=== PATIENT | female | born 1995 | race African-American/Black ===

== ENCOUNTER 2018-09-09 23:49 | Emergency (ER) | payer SELFPAY ==
[~2018-09-09] VITALS: Ht 157.5 cm; Wt 131.5 kg
--- NOTE | 2018-09-10 00:56 | PHYS DOC ---
Past Medical History Past Medical History: Other Additional Past Medical Histor: PCOS Past Surgical History: No Surgical History Additional Information: 1-2 cigars per day. Alcohol Use: Heavy Drug Use: None Adult General Chief Complaint Chief Complaint: TOOTH ACHE OR PAIN [place] [employer] HPI Patient is a 23 year old female who presents with dental pain. Patient states she has a known cavity in the upper left molar area. It has been there for many months. She has not seen a dentist. Today, she presents to the ER with pain at that site. She did not have any new trauma or did not recently break the tooth. No fever or chills. No difficulty breathing or swallowing. Her pain became severe in the last 2-4 hours. Review of Systems Review of Systems Constitutional: Denies fever Eyes: Denies change in visual acuity HENT: Denies nasal congestion Respiratory: Denies cough or shortness of breath Cardiovascular: No additional information not addressed in HPI Integument: Denies rash Neurologic: Denies headache All other systems were reviewed and found to be within normal limits, except as documented in this note. Current Medications Current Medications Current Medications Medications (Trade) Dose Ordered Sig/Ritika Start Time Stop Time Status Last Admin Dose Admin Amoxicillin (Amoxil) 500 mg 1X ONCE 09/10/18 01:00 09/10/18 01:01 09/10/18 00:48 500 MG Morphine Sulfate (Morphine Sulfate) 10 mg 1X ONCE 09/10/18 01:00 09/10/18 01:01 09/10/18 00:39 10 MG Allergies Allergies Allergies Coded Allergies Type Severity Reaction Last Updated Verified No Known Drug Allergies 09/10/18 No Physical Exam Physical Exam Constitutional: Well developed, well nourished, no acute distress, non-toxic appearance HENT: Normocephalic, atraumatic, bilateral external ears normal, oropharynx moist, no oral exudates, nose normal, no drainable or fluctuant fluid collection is present. There is a dental caries in the area of concern. Eyes: PERRLA, EOMI, conjunctiva normal Neck: Normal range of motion Cardiovascular:Heart rate regular rhythm, no murmur Lungs & Thorax: Bilateral breath sounds clear to auscultation Skin: Warm, dry, no erythema, no rash Extremities: No tenderness Neurologic: Alert and oriented X 3 Psychologic: Affect normal Current Patient Data Vital Signs Vital Signs Date Time Temp Pulse Resp B/P (MAP) Pulse Ox O2 Delivery O2 Flow Rate FiO2 09/10/18 00:40 92 22 160/97 (118) 97 Room Air 09/09/18 23:50 98.9 98.9 EKG EKG [] Radiology/Procedures Radiology/Procedures [] Course & Med Decision Making Course & Med Decision Making Pertinent Labs and Imaging studies reviewed. (See chart for details) Patient evaluated in the ER for pain 2/2 dental caries. No acute abscess seen on exam. In the ER she does appear to be in significant distress 2/2 pain. She was given 10 mg morphine IM. Following this, her pain was more tolerable. She was discharged home with some motrin, percocet, and amoxicillin. She is advised to f/u with a dentist as soon as possible. Return to the ER for new or worsening symptoms. Opiate medication information is provided to the patient. She is not driving home this evening. Calling a family member. [place] Disclaimer Dragon Disclaimer This electronic medical record was generated, in whole or in part, using a voice recognition dictation system. Departure Departure Disposition: 01 HOME, SELF-CARE Condition: GOOD Referrals: NO PCP (PCP) Patient Instructions: Dental Pain, Pain Medicine Instructions, [id number] Scripts Oxycodone/Apap 5-325 (PERCOCET 5-325 MG TABLET) 1 Each Tablet 1-2 EACH PO PRN TID PRN for SEVERE PAIN, #15 TAB pain Prov: LENO HERRERA DO 09/10/18 Amoxicillin (AMOXICILLIN) 500 Mg Tablet 1 TAB PO TID, #30 TAB Prov: LENO HERRERA DO 09/10/18 Ibuprofen (IBUPROFEN) 800 Mg Tablet 800 MG PO PRN TID PRN for PAIN, #30 TAB take with food or milk to avoid upsetting stomach Prov: LENO HERRERA DO 09/10/18 LENO HERRERA DO Sep 10, 2018 00:56
[2018-09-10] MEDS ORDERED: AMOX500T PO (00:58)
[2018-09-10] MEDS ORDERED: IBUP-1060 PO (00:58)
[2018-09-10] MEDS ORDERED: OXYC-323 PO (00:58)
[2018-09-10] MEDS ORDERED: MORPHINE SULFATE 10 MG/ML VIAL. IM ONE (01:00)
[2018-09-10] MEDS ORDERED: AMOXICILLIN 250 MG CAPSULE. PO ONE (01:00)
[2018-09-10 01:09] VITALS: BP 121/75
== END 2018-09-10 01:10 | disposition home or self-care (01) ==
LOC: ER 09-10 00:01
DX: K02.9 Dental caries, unspecified (principal); F17.210 Nicotine dependence, cigarettes, uncomplicated; F10.20 Alcohol dependence, uncomplicated; Y90.9 Presence of alcohol in blood, level not specified
CPT/HCPCS: 96372; 99283; J2270

== ENCOUNTER 2018-11-05 08:23 | Emergency (ER) | payer SELFPAY ==
[~2018-11-05] VITALS: Ht 157.5 cm; Wt 127.0 kg
[~2018-11-05 08:23] MED LIST: AMOX500T PO; IBUP-1060 PO; ONDA4TAB10 SL; OXYC1TAB15 PO
[2018-11-05] MEDS ORDERED: cefTRIAXone IM 250 MG VIAL IM ONE (08:45)
[2018-11-05] MEDS ORDERED: AZITHROMYCIN 250 MG TABLET. PO ONE (08:45)
[2018-11-05 09:13] LABS: BILIRUBIN,URINE NEGATIVE (NEG); CLARITY,URINE CLEAR; COLOR,URINE YELLOW; NITRITE,URINE NEGATIVE (NEG); PH,URINE 5.5; PROTEIN,URINE NEGATIVE (NEG-TRACE); UROBILINOGEN,URINE 0.2 mg/dL (0.2 mg/dL)
[2018-11-05 09:44] LABS: BACTERIA,URINE MODERATE /HPF (0-FEW); RBC,URINE 20-40 /HPF (0-2)
[2018-11-05 10:01] LABS: CREATININE ISTAT 0.8 mg/dL (0.5-1.4); HEMOGLOBIN ISTAT 12.6 g/dL (12-15); ION CA ISTAT 1.04 mmol/L (1.13-1.32); POTASSIUM ISTAT 4.1 mmol/L (3.5-5.0)
[2018-11-05] MEDS ORDERED: NITR100C62 PO (10:38)
--- NOTE | 2018-11-05 10:40 | PHYS DOC ---
Past Medical History Past Medical History: UTI, Other Additional Past Medical Histor: PCOS Past Surgical History: No Surgical History Additional Information: 1/2 cigar daily Alcohol Use: Heavy Drug Use: None Adult General Chief Complaint Chief Complaint: VAGINAL BLEEDING HPI HPI Patient is a 23 year old [f__sex] who presents with [] Review of Systems Review of Systems Constitutional: Denies fever or chills [] Eyes: Denies change in visual acuity, redness, or eye pain [] HENT: Denies nasal congestion or sore throat [] Respiratory: Denies cough or shortness of breath [] Cardiovascular: No additional information not addressed in HPI [] GI: Denies abdominal pain, nausea, vomiting, bloody stools or diarrhea [] : Denies dysuria or hematuria [] Musculoskeletal: Denies back pain or joint pain [] Integument: Denies rash or skin lesions [] Neurologic: Denies headache, focal weakness or sensory changes [] Endocrine: Denies polyuria or polydipsia [] All other systems were reviewed and found to be within normal limits, except as documented in this note. Current Medications Current Medications Current Medications Medications (Trade) Dose Ordered Sig/Ritika Start Time Stop Time Status Last Admin Dose Admin Azithromycin (Zithromax) 1,000 mg 1X ONCE 11/05/18 08:45 11/05/18 08:47 DC 11/05/18 09:27 1,000 MG Ceftriaxone Sodium (Rocephin Im) 250 mg 1X ONCE 11/05/18 08:45 11/05/18 08:47 DC 11/05/18 09:26 250 MG Allergies Allergies Allergies Coded Allergies Type Severity Reaction Last Updated Verified Latex, Natural Rubber Allergy Intermediate 09/16/18 Yes acetaminophen Allergy Intermediate RASH 09/16/18 Yes Physical Exam Physical Exam Constitutional: Well developed, well nourished, no acute distress, non-toxic appearance. [] HENT: Normocephalic, atraumatic, bilateral external ears normal, oropharynx moist, no oral exudates, nose normal. [] Eyes: PERRLA, EOMI, conjunctiva normal, no discharge. [] Neck: Normal range of motion, no tenderness, supple, no stridor. [] Cardiovascular:Heart rate regular rhythm, no murmur [] Lungs & Thorax: Bilateral breath sounds clear to auscultation [] Abdomen: Bowel sounds normal, soft, no tenderness, no masses, no pulsatile masses. [] Skin: Warm, dry, no erythema, no rash. [] Back: No tenderness, no CVA tenderness. [] Extremities: No tenderness, no cyanosis, no clubbing, ROM intact, no edema. [] Neurologic: Alert and oriented X 3, normal motor function, normal sensory function, no focal deficits noted. [] Psychologic: Affect normal, judgement normal, mood normal. [] Current Patient Data Vital Signs Vital Signs Date Time Temp Pulse Resp B/P (MAP) Pulse Ox O2 Delivery O2 Flow Rate FiO2 11/05/18 08:25 98.5 87 16 134/67 (89) 98 Room Air 98.5 Lab Values Laboratory Tests Test 11/05/18 08:44 11/05/18 09:00 11/05/18 09:37 POC Urine HCG, Qualitative Hcg negative (Negative) Urine Collection Type Unknown Urine Color Yellow Urine Clarity Clear Urine pH 5.5 Urine Specific [place] 1.025 Urine Protein Negative mg/dL (NEG-TRACE) Urine Glucose (UA) Negative mg/dL (NEG) Urine Ketones (Stick) Negative mg/dL (NEG) Urine Blood Large (NEG) Urine Nitrite Negative (NEG) Urine Bilirubin Negative (NEG) Urine Urobilinogen Dipstick 0.2 mg/dL (0.2 mg/dL) Urine Leukocyte Esterase Moderate (NEG) Urine RBC 20-40 /HPF (0-2) Urine WBC 11-20 /HPF (0-4) Urine Bacteria Moderate /HPF (0-FEW) POC Hemoglobin 12.6 g/dL (12-15) POC Hematocrit 37 % (36-40) POC Sodium 141 mmol/L (135-145) POC Potassium 4.1 mmol/L (3.5-5.0) POC Chloride 107 mmol/L (98-110) POC Total CO2 24 mmol/L (23-32) Anion Gap 16 mmol/L (6-14) H POC Blood Urea Nitrogen 13 mg/dL (8-26) POC Creatinine 0.8 mg/dL (0.5-1.4) Glucose Level 103 mg/dL (70-99) H POC Ionized Calcium (Sage) 1.04 mmol/L (1.13-1.32) L Laboratory Tests 11/05/18 09:37 Microbiology 11/05/18 Wet Prep - Final, Complete EKG EKG [] Radiology/Procedures Radiology/Procedures [] Course & Med Decision Making Course & Med Decision Making Pertinent Labs and Imaging studies reviewed. (See chart for details) [] Dragon Disclaimer Dragon Disclaimer This electronic medical record was generated, in whole or in part, using a voice recognition dictation system. Departure Departure Impression: Primary Impression: Abnormal vaginal bleeding Additional Impressions: Urinary tract infection Exposure to sexually transmitted disease (STD) Disposition: HOME, SELF-CARE Condition: STABLE Referrals: NO PCP (PCP) Patient Instructions: Sexually Transmitted Disease, Urinary Tract Infection Additional Instructions: Take the medication as prescribed. Follow-up with gynecology for further management of your abnormal menstrual bleeding. Follow up with your primary care provider in one week for recheck of your urine. Scripts Nitrofurantoin Monohyd/M-Cryst (MACROBID 100 MG CAPSULE) 100 Mg Capsule 1 CAP PO BID for UTI, #14 CAP Prov: GLORIA MILLARD APRN 11/05/18 Problem Qualifiers GLORIA MILLARD APRN Nov 05, 2018 10:40
[2018-11-05 10:59] VITALS: BP 109/58
[2018-11-06 13:19] LABS: GC PROBE Negative (Negative)
== END 2018-11-05 11:02 | disposition home or self-care (01) ==
LOC: ER 08:23
DX: N39.0 Urinary tract infection, site not specified (principal); N93.8 Other specified abnormal uterine and vaginal bleeding; Z20.2 Contact with and (suspected) exposure to infections with a predominantly sexual mode of transmission; F17.210 Nicotine dependence, cigarettes, uncomplicated; F10.20 Alcohol dependence, uncomplicated; Y90.9 Presence of alcohol in blood, level not specified; Z88.6 Allergy status to analgesic agent; Z91.040 Latex allergy status
CPT/HCPCS: 80047; 81001; 81025; 87086; 87491; 87591; 96372; 99283; J0696; Q0111; Q0144; 87186

== ENCOUNTER 2019-01-22 08:30 | Emergency (ER) | payer SELFPAY ==
[~2019-01-22] VITALS: Ht 157.5 cm; Wt 131.5 kg
[~2019-01-22 08:30] MED LIST changes: +NITR100C62 PO
[2019-01-22 08:57] LABS: BILIRUBIN,URINE NEGATIVE (NEG); CLARITY,URINE CLEAR; COLOR,URINE YELLOW; NITRITE,URINE NEGATIVE (NEG); PROTEIN,URINE NEGATIVE (NEG-TRACE); UROBILINOGEN,URINE 0.2 mg/dL (0.2 mg/dL)
[2019-01-22 09:09] LABS: BACTERIA,URINE FEW /HPF (0-FEW); RBC,URINE 0 /HPF (0-2); SQUAMOUS EPITHELIAL CELL,UR MOD /LPF; WBC,URINE OCC /HPF (0-4)
[2019-01-22] MEDS ORDERED: METR500T PO (11:40)
--- NOTE | 2019-01-22 11:41 | PHYS DOC ---
Past Medical History Past Medical History: UTI, Other Additional Past Medical Histor: PCOS Past Surgical History: No Surgical History Alcohol Use: Occasionally Drug Use: None Adult General Chief Complaint Chief Complaint: ABDOMINAL PAIN HPI HPI 23-year-old female presents with some suprapubic discomfort. She has had some white vaginal discharge as well. She denies any dyspareunia. She states there is no chance she is . Denies any fever chills or sweats. She denies any gross hematuria.[] Review of Systems Review of Systems Constitutional: Denies fever or chills [] Eyes: Denies change in visual acuity, redness, or eye pain [] HENT: Denies nasal congestion or sore throat [] Respiratory: Denies cough or shortness of breath [] Cardiovascular: No additional information not addressed in HPI [] GI: Denies abdominal pain, nausea, vomiting, bloody stools or diarrhea [] : Denies dysuria or hematuria [] Musculoskeletal: Denies back pain or joint pain [] Integument: Denies rash or skin lesions [] Neurologic: Denies headache, focal weakness or sensory changes [] Endocrine: Denies polyuria or polydipsia [] All other systems were reviewed and found to be within normal limits, except as documented in this note. Allergies Allergies Allergies Coded Allergies Type Severity Reaction Last Updated Verified Latex, Natural Rubber Allergy Intermediate 09/16/18 Yes acetaminophen Allergy Intermediate RASH 09/16/18 Yes Physical Exam Physical Exam Constitutional: Well developed, well nourished, no acute distress, non-toxic appearance. [] HENT: Normocephalic, atraumatic, bilateral external ears normal, oropharynx moist, no oral exudates, nose normal. [] Eyes: PERRLA, EOMI, conjunctiva normal, no discharge. [] Neck: Normal range of motion, no tenderness, supple, no stridor. [] Cardiovascular:Heart rate regular rhythm, no murmur [] Lungs & Thorax: Bilateral breath sounds clear to auscultation [] Abdomen: Bowel sounds normal, soft, no tenderness, no masses, no pulsatile masses. [] Skin: Warm, dry, no erythema, no rash. [] Back: No tenderness, no CVA tenderness. [] Extremities: No tenderness, no cyanosis, no clubbing, ROM intact, no edema. [] Neurologic: Alert and oriented X 3, normal motor function, normal sensory function, no focal deficits noted. [] Psychologic: Affect normal, judgement normal, mood normal. [] Current Patient Data Vital Signs Vital Signs Date Time Temp Pulse Resp B/P (MAP) Pulse Ox O2 Delivery O2 Flow Rate FiO2 01/22/19 09:23 62 18 107/51 (69) 98 Room Air 01/22/19 08:44 98.7 98.7 Lab Values Laboratory Tests Test 01/22/19 08:35 01/22/19 08:44 Urine Collection Type Unknown Urine Color Yellow Urine Clarity Clear Urine pH 7.0 Urine Specific [place] 1.010 Urine Protein Negative mg/dL (NEG-TRACE) Urine Glucose (UA) Negative mg/dL (NEG) Urine Ketones (Stick) Negative mg/dL (NEG) Urine Blood Negative (NEG) Urine Nitrite Negative (NEG) Urine Bilirubin Negative (NEG) Urine Urobilinogen Dipstick 0.2 mg/dL (0.2 mg/dL) Urine Leukocyte Esterase Negative (NEG) Urine RBC 0 /HPF (0-2) Urine WBC Occ /HPF (0-4) Urine Squamous Epithelial Cells Mod /LPF Urine Bacteria Few /HPF (0-FEW) POC Urine HCG, Qualitative Hcg negative (Negative) Microbiology 01/22/19 Wet Prep - Final, Complete EKG EKG [] Radiology/Procedures Radiology/Procedures [] Course & Med Decision Making Course & Med Decision Making Pertinent Labs and Imaging studies reviewed. (See chart for details) [GC chlamydia swabs were sent for review as well as wet prep] Dragon Disclaimer Dragon Disclaimer This electronic medical record was generated, in whole or in part, using a voice recognition dictation system. Departure Departure Impression: Primary Impression: Vaginal discharge Disposition: 01 HOME, SELF-CARE Condition: STABLE Referrals: NO PCP (PCP) Patient Instructions: Abdominal Pain Additional Instructions: We will call you in 3 days if her cultures are positive. Return to the emergency department with any new or concerning symptoms Scripts Metronidazole (FLAGYL) 500 Mg Tablet 500 MG PO TID for Vaginosis, #30 TAB Prov: JOSE C KOEHLER DO 01/22/19 JOSE C KOEHLER DO Jan 22, 2019 11:41
[2019-01-22 11:46] VITALS: BP 113/54
[2019-01-23 13:18] LABS: GC PROBE Negative (Negative)
== END 2019-01-22 11:50 | disposition home or self-care (01) ==
LOC: ER 08:30
DX: N89.8 Other specified noninflammatory disorders of vagina (principal); Z88.6 Allergy status to analgesic agent; Z91.040 Latex allergy status
CPT/HCPCS: 81001; 81025; 87491; 87591; 99283; Q0111